=== PATIENT | male | born 1960 | race Caucasian/White ===

== ENCOUNTER 2016-09-29 09:58 | Emergency (ER) | payer OTHER ==
[~2016-09-29] VITALS: Ht 167.6 cm; Wt 79.4 kg
[~2016-09-29 09:58] MED LIST: Ecotrin325 MG PO; NORVASC5 MG PO; ZESTRIL,PRINIVI10 MG PO; ZOCOR20 MG PO
[2016-09-29 10:34] LABS: BASO % 0.5 % (0.0-1.0); EOS % 0.7 % (1.0-4.0); HEMATOCRIT 40.8 % (42.0-52.0); HEMOGLOBIN 14.3 g/dl (14.0-18.0); LYMPH # 1.6 10*3/uL (1.3-4.4); LYMPH % 27.3 % (27.0-41.0); MEAN CELL VOLUME 90.7 fl (80.0-94.0); MEAN CORPUSCULAR HGB 31.8 pg (27.0-31.0); MEAN PLATELET VOLUME 8.7 fl (9.6-12.3); MONO # 0.7 10*3/uL (0.1-1.0); MONO % 10.8 % (3.0-9.0); NEUT # 3.6 10*3/uL (2.3-7.9); NEUT % 60.5 % (47.0-73.0); PLATELET COUNT AUTOMATED 255 10*3/uL (130-400); RED CELL DISTRI WIDTH 12.3 % (0-14.5)
[2016-09-29 10:43] LABS: PROTHROMBIN TIME 10.7 SECONDS (9.0-12.4)
[2016-09-29 10:54] LABS: ALBUMIN 4.2 gm/dl (3.1-4.5); ALKALINE PHOSPHATASE 59 U/L (45-117); BILIRUBIN, TOTAL 0.5 mg/dl (0.2-1.0); BUN 10 mg/dl (7-24); CARBON DIOXIDE 22 mmol/L (21-32); CHLORIDE 102 mmol/L (98-107); EST GLOM FILT AFRICAN AMERICAN > 60 ml/min; GLUCOSE 161 mg/dL (65-99); MAGNESIUM 1.8 mg/dL (1.5-2.1); POTASSIUM 3.7 mmol/L (3.5-5.1); SGOT/AST 23 IU/L (3-35); SGPT/ALT 36 U/L (12-78); SODIUM 137 mmol/L (136-145); TOTAL PROTEIN 7.3 gm/dL (6.4-8.2)
[2016-09-29 11:00] LABS: TROPONIN I 0.061 ng/ml (<0.045)
[2016-09-29 11:19] VITALS: BP 140/80
== END 2016-09-29 11:39 | disposition left against medical advice (07) ==
LOC: ED 09:58
PROVIDERS: Nurse Practitioner Family
DX: R07.9 Chest pain, unspecified (principal); I16.0 Hypertensive urgency

== ENCOUNTER 2016-09-30 07:14 | Emergency (ER) | payer OTHER ==
[~2016-09-30] VITALS: Ht 152.4 cm; Wt 79.4 kg
--- NOTE | ~2016-09-30 | CON ---
[place], [place] RE[facility]ATION [id number] UNIT #: [id number] ROOM: DOCTOR: PAOLA RASHEEDJESSICA BIRTHDATE: [birth year] DOS: 09/30/2016 REQUESTING PHYSICIAN: Dr. Reynolds. REASON FOR CONSULTATION: Acute myocardial infarction. ASSESSMENT: 1. Current presentation with classic chest pain, heaviness, tightness radiating to the jaw for 3 days. 2. Continued complaint of chest pain along with unstable arrhythmia after receiving heparin, beta-joaquim, and Lipitor. 3. History of hypertension. 4. Hyperlipidemia. 5. Obesity with possible obstructive sleep apnea. PLAN: 1. Enteric coated aspirin. 2. Lopressor 25. 3. Lipitor 80. 4. Plavix 300 mg. 5. Transfer the patient to Intensive Care Unit with cathode builder capabilities. 6. IV fluid with normal saline. HISTORY AND PHYSICAL: The patient is a pleasant 56-year-old gentleman unknown to our practice, was referred by Dr. Reynolds after presenting for the second time to the Emergency Room in [place] with classic complaint of chest pain, chest pressure, heaviness, tightness radiating to the jaw. Initially started last , which is about 2 days ago when the patient was resting. The pain was almost like 2-3. The second on Sunday afternoon after finishing a spin class where the patient exercised almost routinely and started having similar complaint of chest pain, heaviness, tightness, almost 3-5/10, radiates to the jaw. No associated nausea, vomiting, or diaphoresis. This lasted about half an hour. The patient presented to the Emergency Room. Even though his enzymes were positive, the patient left AMA. The patient back this morning with recurrence of this chest pain while resting while he got up in the morning and took a shower. At this time, the pain is almost 6/10 that lasted almost an hour with similar characteristics like has previously had yesterday. The patient prior to that never had such complaints. He is active, exercises on a routine basis. Never had any symptomatic palpitation or any associated dizziness, lightheadedness, or near-syncope. The patient sleeps on 1 pillow with no reported PND, orthopnea, or pedal edema. No fever, no chills, no night sweats, maintains good appetite, no significant weight shift recently. PAST MEDICAL HISTORY: As detailed in my assessment. SOCIAL HISTORY: The patient denies any current tobacco, alcohol, or illicit drug abuse. The patient does drink slightly excessively on the weekends. FAMILY HISTORY: Both parents are . He has 1 brother and 2 sisters with no reported early family history of heart disease. The patient's father had [place], [place] REPORT OF CONSULTATION NAME: ANIL MCGRATH UNIT #: [id number] ROOM: DOCTOR: JESSICA GUEVARA MD BIRTHDATE: [birth year] bypass surgery, but in his 70s. CURRENT MEDICATIONS: Norvasc, aspirin, lisinopril. ALLERGIES: The patient has no known drug allergies. REVIEW OF SYSTEMS: Currently, the patient denies any headache, diplopia, or blurry vision. No fever, no chills, no night sweats. No abdominal pain, no bright blood per rectum, no tarry stools, no joint pain, no muscular pain, no anxiety, no depression, no polyuria, no polydipsia, no skin rash. PHYSICAL EXAMINATION: GENERAL: The patient is alert, oriented x 3, quite pleasant. The patient is slightly anxious, sitting up in bed, does not appear in any distress. No ongoing complaint at the time of exam. VITAL SIGNS: Blood pressure 150/88, heart rate 82, respiratory rate of 16, temperature 98.2. HEENT: Extraocular muscles intact. Pupils equal, round, reactive to light. Conjunctivae: No pallor. Throat: No petechiae. NECK: Good upstroke. Unable to appreciate any bruit. No lymphadenopathy, no thyromegaly. HEART: S1, S2 with holosystolic murmur at left upper sternal border, loud P2. No rub. No retrosternal heave. CHEST AND BACK: No deformities. LUNGS: Clear to auscultation. Good air movement. No wheezing or rales. ABDOMEN: Obese, soft, nontender, present bowel sounds. No masses, no bruits. LOWER EXTREMITIES: There is no edema with faint distal pulses. NEUROLOGIC: Grossly nonfocal. SKIN: No significant rash. DIAGNOSTIC DATA: Electrocardiogram showing mild ischemic changes in the inferior leads with nonspecific ST changes. LABORATORY DATA: Showing elevated troponin. Please note, this is a critical care note between 30-70 minutes, failure to intervene will cause the patient compromise his life. JESSICA GUEVARA MD CM:CONSTR:REPORT OF CONSULTATION 1014 09/30/16 1115 interface
[2016-09-30 07:37] LABS: BASO % 0.6 % (0.0-1.0); EOS # 0.1 10*3/uL (0.0-0.4); EOS % 1.4 % (1.0-4.0); HEMATOCRIT 43.2 % (42.0-52.0); HEMOGLOBIN 15.1 g/dl (14.0-18.0); LYMPH # 2.1 10*3/uL (1.3-4.4); LYMPH % 40.9 % (27.0-41.0); MEAN CELL VOLUME 91.7 fl (80.0-94.0); MEAN CORPUSCULAR HGB 32.1 pg (27.0-31.0); MEAN PLATELET VOLUME 8.9 fl (9.6-12.3); MONO # 0.6 10*3/uL (0.1-1.0); MONO % 10.9 % (3.0-9.0); NEUT # 2.3 10*3/uL (2.3-7.9); PLATELET COUNT AUTOMATED 293 10*3/uL (130-400); RED BLOOD COUNT 4.71 10*6/uL (4.50-5.90); RED CELL DISTRI WIDTH 12.4 % (0-14.5); WHITE BLOOD COUNT 5.1 10*3/uL (4.8-10.8)
[2016-09-30 07:47] LABS: PROTHROMBIN TIME 10.6 SECONDS (9.0-12.4)
[2016-09-30 07:54] LABS: ALBUMIN 4.3 gm/dl (3.1-4.5); ALKALINE PHOSPHATASE 58 U/L (45-117); BILIRUBIN, TOTAL 0.5 mg/dl (0.2-1.0); BUN 10 mg/dl (7-24); CARBON DIOXIDE 24 mmol/L (21-32); CHLORIDE 103 mmol/L (98-107); EST GLOM FILT AFRICAN AMERICAN > 60 ml/min; GLUCOSE 217 mg/dL (65-99); POTASSIUM 4.1 mmol/L (3.5-5.1); SGOT/AST 24 IU/L (3-35); SGPT/ALT 35 U/L (12-78); SODIUM 139 mmol/L (136-145); TOTAL PROTEIN 7.7 gm/dL (6.4-8.2)
[2016-09-30 07:56] LABS: TROPONIN I 0.115 ng/ml (<0.045)
[2016-09-30 10:47] VITALS: BP 166/83
== END 2016-09-30 11:41 | disposition short-term general hospital (02) ==
LOC: ED 07:14
PROVIDERS: Emergency Medicine
DX: R94.31 Abnormal electrocardiogram [ECG] [EKG] (principal); R07.9 Chest pain, unspecified; Z79.82 Long term (current) use of aspirin